=== PATIENT | male | born 1995 | race Caucasian/White ===

== ENCOUNTER → 2018-11-13 | Outpatient (CLI) | payer OTHER ==
[~2018-11-13] MED LIST: COLA100C5 PO; PERCOCET PO
[2018-11-13 20:46] LABS: BLOOD UREA NITROGEN 17 MG/DL (7-18); CALCIUM LEVEL 8.8 MG/DL (8.5-10.1); CARBON DIOXIDE LEVEL 30 MEQ/L (21-32); CHLORIDE LEVEL 106 MEQ/L (98-107); CREATININE FOR GFR 0.99 MG/DL (0.70-1.30); GLOMERULAR FILTRATION RATE > 60.0 (>60); GLUCOSE, FASTING 89 MG/DL (70-100); POTASSIUM SERUM 4.4 MEQ/L (3.5-5.1); SODIUM LEVEL 140 MEQ/L (136-145)
[2018-11-13 20:48] LABS: HEMATOCRIT 41.8 % (42.0-52.0); HEMOGLOBIN 14.1 g/dl (13.5-17.5); MEAN CORPUSCULAR HEMOGLOBIN 31.3 pg (27.0-33.0); MEAN CORPUSCULAR HGB CONC 33.7 g/dl (32.0-36.5); MEAN CORPUSCULAR VOLUME 92.7 fl (80.0-96.0); PLATELET COUNT, AUTOMATED 247 10^3/uL (150-450); RED BLOOD COUNT 4.51 10^6/uL (4.30-6.10); WHITE BLOOD COUNT 6.4 10^3/uL (4.0-10.0)
== END ==
LOC: M LRY 14:55
PROVIDERS: ATTEND Plastic Surgery Surgery of the Hand
DX: M54.07 Panniculitis affecting regions of neck and back, lumbosacral region (principal)

== ENCOUNTER 2018-11-18 05:48 | Day surgery (SDC) | payer OTHER ==
[~2018-11-18] VITALS: Ht 170.2 cm; Wt 97.0 kg
[2018-11-18] VITALS (8 sets, daily range): BP systolic 119–142; BP diastolic 34–77
[2018-11-18] MEDS ORDERED: LIDOCAINE 1% MDV 20ML VIAL SQ PRN (06:00)
[2018-11-18] MEDS ORDERED: dexameTHASONE 4 MG/ML 1ML VIAL (J1100) As Ordered ONE (06:59)
[2018-11-18] MEDS ORDERED: PROPOFOL 200 MG/20 ML VIAL As Ordered ONE (06:59)
[2018-11-18] MEDS ORDERED: ONDANSETRON 4MG/2ML VIAL (J2405) As Ordered ONE (06:59)
[2018-11-18] MEDS ORDERED: ROCURONIUM BROMIDE 50 MG/5 ML VIAL As Ordered ONE (06:59)
[2018-11-18] MEDS ORDERED: LIDOCAINE 2% INJ 100 MG/5 ML SDV (FOR ANES.) As Ordered ONE (06:59)
[2018-11-18] MEDS ORDERED: LR 1,000 ML IV ONE (07:00)
[2018-11-18] MEDS ORDERED: HEPARIN SOD (PORCINE) 5000 UNITS/ML VIAL SQ ONE (07:00)
[2018-11-18] MEDS ORDERED: ceFAZolin SOD 1 GM in D5W MINI-BAG PLUS 50 ML IV ONE (07:00)
[2018-11-18] MEDS ORDERED: MIDAZOLAM INJ 2 MG/2 ML VIAL (J2250) As Ordered ONE (07:05)
[2018-11-18] MEDS ORDERED: fentaNYL 250 MCG/5 ML INJECTION (J3010) As Ordered ONE (07:05)
[2018-11-18] MEDS ORDERED: BACITRACIN PWD 50,000 UNITS VIAL As Ordered ONE (07:13)
[2018-11-18] MEDS ORDERED: BUPIVACAINE LIPOSOME/PF 1.3% 20ML VIAL (13.3MG/ML)(EXPAREL)(C9290 PER1MG) As Ordered ONE (07:13)
[2018-11-18] MEDS ORDERED: ACETAMINOPHEN 1000MG 100ML IV BTL (OFIRMEV) (J0131 PER 10MG) As Ordered ONE (07:49)
[2018-11-18] MEDS ORDERED: VECURONIUM BROMIDE 10 MG VIAL As Ordered ONE (07:50)
[2018-11-18] MEDS ORDERED: GLYCOPYRROLATE INJ 0.2 MG/ML 2 ML VIAL As Ordered ONE (08:13)
[2018-11-18] MEDS ORDERED: SUGAMMADEX SODIUM 500 MG/5 ML VIAL (BRIDION) As Ordered ONE (08:47)
[2018-11-18] MEDS ORDERED: ePHEDrine SULFATE 25 MG/5 ML(5MG/ML) SYRINGE As Ordered ONE (09:10)
[2018-11-18] MEDS ORDERED: fentaNYL 100 MCG/2 ML INJECTION (J3010) As Ordered ONE ×2 (09:33→10:35)
[2018-11-18] MEDS ORDERED: LIDOCAINE W/EPINEPHRINE 1% 20ML VIAL As Ordered ONE (09:56)
--- NOTE | 2018-11-18 11:29 | POST-OPPD ---
Postoperative Procedure Note Date Of Procedure: Nov 18, 2018 PREOPERATIVE DIAGNOSIS: Panniculitis POSTOPERATIVE DIAGNOSIS: same FINDINGS: extensive pannus. PROCEDURE: Extended panniculectomy. SURGEON: Dr Scanlon ANESTHESIA: General SPECIMENS: Pannus 1977g ESTIMATED BLOOD LOSS: 50cc REPLACED: none DRAINS: 10 mm MARCO drains x 4 COMPLICATIONS: none POSTOPERATIVE CONDITION: stable Dictation: [id number] MELLY SCANLON DO Nov 18, 2018 11:29
[2018-11-18] MEDS ORDERED: fentaNYL 100 MCG/2 ML INJECTION (J3010) IV PRN (12:00)
[2018-11-18] MEDS ORDERED: ONDANSETRON 4MG/2ML VIAL (J2405) IV PRN ×2 (12:00→13:01)
[2018-11-18] MEDS ORDERED: HYDROMORPHONE HCL 0.5 MG/ 0.5 ML SYRINGE (J1170 PER 1) IV PRN (12:00)
[2018-11-18] MEDS ORDERED: LR 1,000 ML IV SCH (12:00)
[2018-11-18] MEDS ORDERED: oxyCODONE 5MG TAB PO PRN (12:00)
[2018-11-18] MEDS: LR 1,000 ML IV SCH ×2 (13:00→21:59)
[2018-11-18] MEDS: ceFAZolin SOD 1 GM in D5W MINI-BAG PLUS 50 ML IV SCH (15:23)
[2018-11-18] MEDS: PERCOCET 5MG/325MG TAB PO PRN (15:23)
--- NOTE | 2018-11-18 23:09 | RO ---
DATE OF PROCEDURE: 11/18/2018 PREPROCEDURE DIAGNOSIS: Panniculitis. POSTPROCEDURE DIAGNOSIS: Panniculitis. PROCEDURE: Extended panniculectomy. SURGEON: Deedee Rosas DO ANESTHESIA: General. SPECIMEN SENT: Pannus 1976 grams. BLOOD LOSS: 50 mL. No complications. Four drains left in place, 10 mm Ceferino-Lee. DESCRIPTION OF PROCEDURE: This is a 23-year-old male who lost a large amount of weight, over 100 pounds. He has significant pannus anteriorly above umbilicus and below. Patient had no previous operations. He lost the weight with diet and exercise. He wishes to have excess skin removed. Risks, benefits and alternatives discussed with the patient, and he is ready to proceed. On the day of surgery, he was marked in preoperative holding area and then brought into the operating room, placed in supine position. Preoperative antibiotics were given. 5000 units of Heparin were given SQ. Sequential stockings placed on the lower calves and general anesthesia was induced. He was prepped and draped in the usual sterile fashion. The measurements are as follows: 7 cm, the lower incision is going to be from the pubic bone. Wide incision was made in the lower abdomen, and a flap was raised using electrocautery. Perforators were identified and suture ligated as we went along until umbilicus stalk was encountered. Then, the rhomboid incision was made in a flap around the umbilicus, and then we continued raising the flap until the Xiphoid process superiorly and the costal margins laterally. Umbilical stalk was left in place with good perfusion. We reexamined the Rectus muscle. There is a diastasis superiorly more than inferiorly, 5 cm, so the patient was placed in Trendelenburg position, and the rectus sheath was plicated, alleviating the diastasis. We used interrupted #0 Vicryl sutures and a running #1 looped PDS. After the plication was completed, we checked again the flaps for hemostasis, which was completed, and we used electrocautery and also suture ligation. Patient placed in the reflex position and pannus was measured and resected, totaling 1977 grams. The flap was always in good perfusion, and it was realigned and was tailored and tacked with sweetheart clamps to reassure the symmetry. Exparel was injected in the anterior rectus sheath, total 10 cc. Then, we started our closure with three layers of interrupted #0 Vicryl, then #3-0 Monocryl and a V-Loc suture, #3-0 Monocryl as well. Two 10 mm Ceferino- Lee drains placed on each side through the horizontal incision. Another 5 cc Exparel infiltrated in the incision. After that portion of the procedure completed, the new opening for the umbilical stalk was made. Then, the umbilical stalk was brought into view and sutured in place with layered closure with interrupted #3-0 Monocryl and a #5-0 plain suture. There was slight asymmetry on the left side, but he has more fatty tissue on the left side, so that area was infiltrated with tumescent solution and suction-assisted lipectomy was done for symmetry on the left side and slightly on the right to create symmetry on the lower lateral portions of the incision. 150 mL of tumescent solution and 150 mL of suction-assisted lipectomy was taken out. The Prineo dressing was applied to lower abdomen and Xeroform to the umbilicus. Patient placed in a padded binder, and was extubated in the operating room without any difficulties, transferred to the recovery room in stable condition. MIKE
[2018-11-19] MEDS: ceFAZolin SOD 1 GM in D5W MINI-BAG PLUS 50 ML IV SCH (00:14)
[2018-11-19 02:00] VITALS: BP 119/71
[2018-11-19 06:00] VITALS: BP 115/70
[2018-11-19] MEDS: PERCOCET 5MG/325MG TAB PO PRN (08:24)
--- NOTE | 2018-11-19 09:06 | IPNPDOC ---
Subjective General Date/Time Seen The patient was seen on 11/19/18 at 07:52. Subject Chief Complaint/History The patient is a 23-year-old male admitted with a reason for visit of Panniculitis. S/p Extended panniculectomy POD 1. Recovering well. Muñoz removed. Tolerating full liquid diet. Pain controlled with medications. Denies nausea, vomiting. Some numbness left hand, no problems moving. Current Medications Current Medications Current Medications Medications (Trade) Dose Ordered Sig/Ronnie Route PRN Reason Start Time Stop Time Status Last Admin Dose Admin Cefazolin Sodium 1 gm/Dextrose 50 ml @ 100 mls/hr Q8H IV 11/18/18 16:00 11/19/18 00:29 DC 11/19/18 00:14 Fentanyl Citrate (Sublimaze) 25 mcg Q5MP PRN IV MODERATE PAIN (PS 4-7) 11/18/18 12:00 11/18/18 13:00 DC Hydromorphone HCl (Dilaudid) 0.4 mg Q5MP PRN IV MODERATE/SEVERE PAIN (PS 5-10) 11/18/18 12:00 11/18/18 13:00 DC Lactated Ringer's 1,000 ml @ 75 mls/hr [id number] IV 11/18/18 13:00 11/18/18 21:59 Lactated Ringer's 1,000 ml @ 100 mls/hr Q10H IV 11/18/18 12:00 11/18/18 13:00 DC Lidocaine HCl (LIDOCAINE 1% MDV 20ml) 0.1 ml ONCE PRN SQ DISCOMFORT BEFORE IV START 11/18/18 06:00 11/18/18 11:50 DC Morphine Sulfate (Morphine Sulfate Inj) 4 mg Q4HP PRN IV SEVERE PAIN (PS 8-10) 11/18/18 13:01 Ondansetron HCl (ZOFRAN INJection) 4 mg Q4HP PRN IV NAUSEA OR VOMITING 11/18/18 12:00 11/18/18 13:00 DC Ondansetron HCl (ZOFRAN INJection) 4 mg Q6HP PRN IV NAUSEA 11/18/18 13:01 11/18/18 17:52 Oxycodone HCl (Roxicodone, Oxyir) 5 mg ASDIRECTED PRN PO MILD/MODERATE PAIN (PS 1-7) 11/18/18 12:00 11/18/18 13:00 DC Oxycodone/ Acetaminophen (Percocet 5mg/ 325mg Tablet) 1 tab Q4HP PRN PO MODERATE PAIN (PS 5-7) 11/18/18 13:01 11/19/18 08:24 Allergies Coded Allergies: No Known Allergies (Unverified , 11/18/18) Objective Physical Examination Examination GENERAL APPEARANCE:Patient seen, laying in bed, awake, alert, and oriented. Comfortable, in no acute distress. SKIN: Warm and moist. LUNGS: Clear to auscultation bilaterally. No wheezing appreciated. HEART: No chest wall abnormalities. Regular rate and rhythm with no murmurs appreciated. ABDOMEN: Abdomen is soft, post op reproducible tenderness. Incisions intact. Umbilicus viable. MARCO drains with serosanguinous drainage. Minimal post op swelling. EXTREMITIES: Extremities have no deformities. No edema identified.Left hand full ROM, generalized numbness of the fingers. Vital Signs Vital Signs Date Time Temp Pulse Resp B/P (MAP) Pulse Ox O2 Delivery O2 Flow Rate FiO2 11/19/18 08:24 17 11/19/18 06:00 98.8 83 115/70 (85) 97 11/18/18 11:50 2 I&Os I&O- Last 24 Hours up to 6 AM 11/19/18 06:00 Intake Total 5460 ml Output Total 3168 ml Balance 2292 ml Impression S/p extended panniculectomy POD 1. Recovering well. D/c IVF, Muñoz today. Advance diet to Regular. Start with ambulating. Keep HOB at 45 degrees Pain control Dressings changed, continue with MARCO monitoring Findings explained to the patient. Teaching on how get up and move safely done with patient. Incentive spirometry. Numbness left hand- continue with observation, encourage moving the hand. Will follow. Plan / VTE VTE Prophylaxis Ordered?: Yes MELLY SCANLON DO Nov 19, 2018 09:06
[2018-11-19 10:00] VITALS: BP 138/30
[2018-11-19] MEDS: MORPHINE 4 MG/ML 1ML VIAL/SYRINGE (J2270) IV PRN ×2 (10:11→15:20)
[2018-11-19 14:00] VITALS: BP 144/82
[2018-11-19 18:00] VITALS: BP 150/80
[2018-11-19 20:00] VITALS: BP 142/88
[2018-11-19] MEDS ORDERED: PERCOCET 5MG/325MG TAB PO PRN (20:30)
[2018-11-20 02:00] VITALS: BP 124/72
[2018-11-20 06:00] VITALS: BP 123/89
[2018-11-20] MEDS ORDERED: DOCUSATE SODIUM 100 MG CAP PO SCH (09:00)
--- NOTE | 2018-11-20 09:37 | IPNPDOC ---
Subjective General Date/Time Seen The patient was seen on 11/20/18 at 09:33. Subject Chief Complaint/History The patient is a 23-year-old male admitted with a reason for visit of Panniculitis. S/p Extended panniculectomy POD 2. Doing well Pain controlled. No complains Hand numbness improved Current Medications Current Medications Current Medications Medications (Trade) Dose Ordered Sig/Ronnie Route PRN Reason Start Time Stop Time Status Last Admin Dose Admin Cefazolin Sodium 1 gm/Dextrose 50 ml @ 100 mls/hr Q8H IV 11/18/18 16:00 11/19/18 00:29 DC 11/19/18 00:14 Fentanyl Citrate (Sublimaze) 25 mcg Q5MP PRN IV MODERATE PAIN (PS 4-7) 11/18/18 12:00 11/18/18 13:00 DC Hydromorphone HCl (Dilaudid) 0.4 mg Q5MP PRN IV MODERATE/SEVERE PAIN (PS 5-10) 11/18/18 12:00 11/18/18 13:00 DC Lactated Ringer's 1,000 ml @ 75 mls/hr [id number] IV 11/18/18 13:00 11/19/18 11:41 DC 11/18/18 21:59 Lactated Ringer's 1,000 ml @ 100 mls/hr Q10H IV 11/18/18 12:00 11/18/18 13:00 DC Lidocaine HCl (LIDOCAINE 1% MDV 20ml) 0.1 ml ONCE PRN SQ DISCOMFORT BEFORE IV START 11/18/18 06:00 11/18/18 11:50 DC Morphine Sulfate (Morphine Sulfate Inj) 4 mg Q4HP PRN IV SEVERE PAIN (PS 8-10) 11/18/18 13:01 11/19/18 15:20 Ondansetron HCl (ZOFRAN INJection) 4 mg Q4HP PRN IV NAUSEA OR VOMITING 11/18/18 12:00 11/18/18 13:00 DC Ondansetron HCl (ZOFRAN INJection) 4 mg Q6HP PRN IV NAUSEA 11/18/18 13:01 11/18/18 17:52 Oxycodone HCl (Roxicodone, Oxyir) 5 mg ASDIRECTED PRN PO MILD/MODERATE PAIN (PS 1-7) 11/18/18 12:00 10/8/19 13:00 DC Oxycodone/ Acetaminophen (Percocet 5mg/ 325mg Tablet) 1 tab Q4HP PRN PO MODERATE PAIN (PS 5-7) 11/18/18 13:01 11/19/18 20:27 DC 11/19/18 08:24 Oxycodone/ Acetaminophen (Percocet 5mg/ 325mg Tablet) 2 tab Q4HP PRN PO PAIN 11/19/18 20:30 11/19/18 21:10 Allergies Coded Allergies: No Known Allergies (Unverified , 11/18/18) Objective Physical Examination Examination GENERAL APPEARANCE:Patient seen, laying in bed, awake, alert, and oriented. Comfortable, in no acute distress. SKIN: Warm and moist. LUNGS: Clear to auscultation bilaterally. No wheezing appreciated. HEART: No chest wall abnormalities. Regular rate and rhythm with no murmurs appreciated. ABDOMEN: Abdomen is soft NT/ND. Incisions intact. Umbilicus viable. MARCO drains with sanguineous drainage. Minimal ecchymois. Vital Signs Vital Signs Date Time Temp Pulse Resp B/P (MAP) Pulse Ox O2 Delivery O2 Flow Rate FiO2 11/20/18 06:00 97.2 81 18 123/89 (100) 96 11/18/18 11:50 2 I&Os I&O- Last 24 Hours up to 6 AM 11/20/18 06:00 Intake Total 1764 ml Output Total 40 ml Balance 1724 ml Impression S/p panniculectomy POD 2 Stable for discharge Colace Rx Percocet Monitor MARCO drains. Abdominal binder. Post instructions given to patient. F/up plastic surgery Plan / VTE VTE Prophylaxis Ordered?: Yes MELLY SCANLON DO Nov 20, 2018 09:37
[2018-11-20] MEDS ORDERED: PERCOCET PO (09:44)
[2018-11-20] MEDS ORDERED: COLA100C5 PO (09:44)
== END 2018-11-20 11:10 | disposition home or self-care (01) ==
LOC: M SDC 05:48 → M MSPAV 12:18 → M SDC 11-20 11:10
PROVIDERS: ATTEND Plastic Surgery Surgery of the Hand
DX: M54.07 Panniculitis affecting regions of neck and back, lumbosacral region (principal)
CPT/HCPCS: 15830; 88302; 96361; 96365; 96366; 96375; 96376; C9290; J0131; J0690; J1100; J2250; J2270; J2405; J3010

== ENCOUNTER 2019-05-02 19:45 | Emergency (ER) | payer OTHER ==
[~2019-05-02] VITALS: Ht 170.2 cm; Wt 100.2 kg
[2019-05-02 20:19] LABS: HEMATOCRIT 45.7 % (42.0-52.0); HEMOGLOBIN 15.4 g/dl (13.5-17.5); MEAN CORPUSCULAR HEMOGLOBIN 31.2 pg (27.0-33.0); MEAN CORPUSCULAR HGB CONC 33.7 g/dl (32.0-36.5); MEAN CORPUSCULAR VOLUME 92.7 fl (80.0-96.0); PLATELET COUNT, AUTOMATED 258 10^3/uL (150-450); RED BLOOD COUNT 4.93 10^6/uL (4.30-6.10); WHITE BLOOD COUNT 8.6 10^3/uL (4.0-10.0)
[2019-05-02 20:42] LABS: AMPHETAMINES LEVEL URINE NEGATIVE (NEGATIVE); BARBITURATES URINE NEGATIVE (NEGATIVE); BENZODIAZEPINES URINE NEGATIVE (NEGATIVE); CANNABINOIDS URINE NEGATIVE (NEGATIVE); COCAINE METABOLITE URINE NEGATIVE (NEGATIVE); METHADONE URINE NEGATIVE (NEGATIVE); OPIATES URINE NEGATIVE (NEGATIVE); PHENCYCLIDINE URINE NEGATIVE (NEGATIVE)
[2019-05-02 20:52] LABS: ALBUMIN 3.8 GM/DL (3.2-5.2); ALT/SGPT 35 U/L (12-78); BILIRUBIN,DIRECT 0.2 MG/DL (0.0-0.2); BILIRUBIN,TOTAL 0.5 MG/DL (0.2-1.0); BLOOD UREA NITROGEN 15 MG/DL (7-18); CALCIUM LEVEL 8.7 MG/DL (8.5-10.1); CARBON DIOXIDE LEVEL 30 MEQ/L (21-32); CHLORIDE LEVEL 109 MEQ/L (98-107); CREATININE FOR GFR 1.08 MG/DL (0.70-1.30); ETHYL ALCOHOL (ETHANOL) < 0.003 % (0.000-0.010); GLOMERULAR FILTRATION RATE > 60.0 (>60); GLUCOSE, FASTING 70 MG/DL (70-100); POTASSIUM SERUM 3.9 MEQ/L (3.5-5.1); SALICYLATE LEVEL < 1.7 MG/DL (5.0-30.0); SODIUM LEVEL 143 MEQ/L (136-145); TOTAL PROTEIN 7.5 GM/DL (6.4-8.2)
[2019-05-02 20:53] LABS: ACETAMINOPHEN LEVEL < 2.0 UG/ML (10.0-30.0)
--- NOTE | 2019-05-02 21:46 | ED PDOC ---
Post-Departure Follow-Up I thought the pt.would benefit from admission. Pt refused this. Dr Mike did n ot feel involuntary admission was needed. If the pt. refuses admission, this is his choice. the [facility] at [facility] on Saturday. RICK CULP DO May 02, 2019 21:46
[2019-05-02 21:50] VITALS: BP 139/80
== END 2019-05-02 22:15 | disposition home or self-care (01) ==
LOC: M ED 19:45
DX: F33.9 Major depressive disorder, recurrent, unspecified (principal); R45.851 Suicidal ideations
CPT/HCPCS: 36415; 80048; 80076; 80307; 84443; 85027; 99284; G0480

== ENCOUNTER 2019-06-27 13:40 | Emergency (ER) | payer OTHER ==
[~2019-06-27] VITALS: Ht 170.2 cm; Wt 97.2 kg
[2019-06-27] MEDS ORDERED: ARIP1TAB4 PO (13:50)
[2019-06-27 14:24] LABS: HEMATOCRIT 41.4 % (42.0-52.0); MEAN CORPUSCULAR HEMOGLOBIN 31.5 pg (27.0-33.0); MEAN CORPUSCULAR HGB CONC 33.8 g/dl (32.0-36.5); MEAN CORPUSCULAR VOLUME 93.2 fl (80.0-96.0); PLATELET COUNT, AUTOMATED 233 10^3/uL (150-450); RED BLOOD COUNT 4.44 10^6/uL (4.30-6.10); WHITE BLOOD COUNT 7.8 10^3/uL (4.0-10.0)
[2019-06-27 15:03] LABS: AMPHETAMINES LEVEL URINE NEGATIVE (NEGATIVE); BARBITURATES URINE NEGATIVE (NEGATIVE); BENZODIAZEPINES URINE NEGATIVE (NEGATIVE); CANNABINOIDS URINE NEGATIVE (NEGATIVE); COCAINE METABOLITE URINE NEGATIVE (NEGATIVE); METHADONE URINE NEGATIVE (NEGATIVE); OPIATES URINE NEGATIVE (NEGATIVE); PHENCYCLIDINE URINE NEGATIVE (NEGATIVE)
[2019-06-27 15:24] LABS: ACETAMINOPHEN LEVEL < 2.0 UG/ML (10.0-30.0); ALT/SGPT 80 U/L (12-78); BILIRUBIN,DIRECT 0.2 MG/DL (0.0-0.2); BILIRUBIN,TOTAL 0.6 MG/DL (0.2-1.0); BLOOD UREA NITROGEN 20 MG/DL (7-18); CALCIUM LEVEL 8.6 MG/DL (8.5-10.1); CARBON DIOXIDE LEVEL 28 MEQ/L (21-32); CHLORIDE LEVEL 109 MEQ/L (98-107); CREATININE FOR GFR 1.02 MG/DL (0.70-1.30); ETHYL ALCOHOL (ETHANOL) < 0.003 % (0.000-0.010); GLOMERULAR FILTRATION RATE > 60.0 (>60); GLUCOSE, FASTING 89 MG/DL (70-100); POTASSIUM SERUM 3.7 MEQ/L (3.5-5.1); SALICYLATE LEVEL < 1.7 MG/DL (5.0-30.0); SODIUM LEVEL 142 MEQ/L (136-145); TOTAL PROTEIN 7.3 GM/DL (6.4-8.2)
[2019-06-27 16:22] VITALS: BP 141/77
--- NOTE | 2019-06-28 21:02 | ECGEPIP ---
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
== END 2019-06-27 16:27 | disposition home or self-care (01) ==
LOC: M ED 13:40
DX: F33.9 Major depressive disorder, recurrent, unspecified (principal); Z79.899 Other long term (current) drug therapy
CPT/HCPCS: 36415; 80048; 80076; 80307; 84443; 85027; 93005; 99284; G0480

== ENCOUNTER 2019-10-05 01:55 | Emergency (ER) | payer OTHER ==
[~2019-10-05] VITALS: Ht 170.2 cm; Wt 122.5 kg
[~2019-10-05 01:55] MED LIST changes: +ARIP1TAB4 PO
[2019-10-05 03:30] LABS: HEMATOCRIT 40.2 % (42.0-52.0); HEMOGLOBIN 13.8 g/dl (13.5-17.5); MEAN CORPUSCULAR HEMOGLOBIN 31.7 pg (27.0-33.0); MEAN CORPUSCULAR HGB CONC 34.3 g/dl (32.0-36.5); MEAN CORPUSCULAR VOLUME 92.4 fl (80.0-96.0); PLATELET COUNT, AUTOMATED 208 10^3/uL (150-450); RED BLOOD COUNT 4.35 10^6/uL (4.30-6.10); WHITE BLOOD COUNT 6.1 10^3/uL (4.0-10.0)
[2019-10-05 04:21] LABS: ACETAMINOPHEN LEVEL < 2.0 UG/ML (10.0-30.0); ALBUMIN 3.4 GM/DL (3.2-5.2); ALT/SGPT 33 U/L (12-78); AMPHETAMINES LEVEL URINE NEGATIVE (NEGATIVE); BARBITURATES URINE NEGATIVE (NEGATIVE); BENZODIAZEPINES URINE NEGATIVE (NEGATIVE); BILIRUBIN,DIRECT 0.1 MG/DL (0.0-0.2); BILIRUBIN,TOTAL 0.4 MG/DL (0.2-1.0); BLOOD UREA NITROGEN 17 MG/DL (7-18); CALCIUM LEVEL 8.3 MG/DL (8.5-10.1); CANNABINOIDS URINE NEGATIVE (NEGATIVE); CARBON DIOXIDE LEVEL 27 MEQ/L (21-32); CHLORIDE LEVEL 109 MEQ/L (98-107); COCAINE METABOLITE URINE NEGATIVE (NEGATIVE); CREATININE FOR GFR 0.98 MG/DL (0.70-1.30); ETHYL ALCOHOL (ETHANOL) < 0.003 % (0.000-0.010); GLOMERULAR FILTRATION RATE > 60.0 (>60); GLUCOSE, FASTING 92 MG/DL (70-100); METHADONE URINE NEGATIVE (NEGATIVE); OPIATES URINE NEGATIVE (NEGATIVE); PHENCYCLIDINE URINE NEGATIVE (NEGATIVE); POTASSIUM SERUM 4.1 MEQ/L (3.5-5.1); SALICYLATE LEVEL < 1.7 MG/DL (5.0-30.0); SODIUM LEVEL 144 MEQ/L (136-145); TOTAL PROTEIN 6.8 GM/DL (6.4-8.2)
[2019-10-06 04:41] VITALS: BP 133/61
--- NOTE | 2019-10-26 17:49 | ECGEPIP ---
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
== END 2019-10-06 04:46 ==
LOC: M ED 01:55
DX: R45.851 Suicidal ideations (principal); Z60.9 Problem related to social environment, unspecified; F33.9 Major depressive disorder, recurrent, unspecified; F41.9 Anxiety disorder, unspecified; Z79.899 Other long term (current) drug therapy
CPT/HCPCS: 36415; 80048; 80076; 80307; 84443; 85027; 93005; 99284; G0480; U0002

== ENCOUNTER 2019-12-13 21:43 | Inpatient (IN) | payer OTHER ==
[~2019-12-13] VITALS: Ht 170.2 cm; Wt 108.0 kg
[2019-12-13] MEDS ORDERED: ESCI10TA2 PO (22:05)
[2019-12-13 22:41] LABS: HEMATOCRIT 44.3 % (42.0-52.0); HEMOGLOBIN 14.8 g/dl (13.5-17.5); MEAN CORPUSCULAR HEMOGLOBIN 30.3 pg (27.0-33.0); MEAN CORPUSCULAR HGB CONC 33.4 g/dl (32.0-36.5); MEAN CORPUSCULAR VOLUME 90.8 fl (80.0-96.0); PLATELET COUNT, AUTOMATED 235 10^3/uL (150-450); RED BLOOD COUNT 4.88 10^6/uL (4.30-6.10); WHITE BLOOD COUNT 6.8 10^3/uL (4.0-10.0)
[2019-12-13 23:08] LABS: AMPHETAMINES LEVEL URINE NEGATIVE (NEGATIVE); BARBITURATES URINE NEGATIVE (NEGATIVE); BENZODIAZEPINES URINE NEGATIVE (NEGATIVE); CANNABINOIDS URINE NEGATIVE (NEGATIVE); COCAINE METABOLITE URINE NEGATIVE (NEGATIVE); METHADONE URINE NEGATIVE (NEGATIVE); OPIATES URINE NEGATIVE (NEGATIVE); PHENCYCLIDINE URINE NEGATIVE (NEGATIVE)
[2019-12-13 23:19] LABS: ACETAMINOPHEN LEVEL < 2.0 UG/ML (10.0-30.0); ALBUMIN 3.9 GM/DL (3.2-5.2); ALT/SGPT 43 U/L (12-78); BILIRUBIN,DIRECT 0.2 MG/DL (0.0-0.2); BILIRUBIN,TOTAL 0.6 MG/DL (0.2-1.0); BLOOD UREA NITROGEN 12 MG/DL (7-18); CALCIUM LEVEL 8.7 MG/DL (8.5-10.1); CARBON DIOXIDE LEVEL 28 MEQ/L (21-32); CHLORIDE LEVEL 108 MEQ/L (98-107); CREATININE FOR GFR 1.03 MG/DL (0.70-1.30); ETHYL ALCOHOL (ETHANOL) < 0.003 % (0.000-0.010); GLOMERULAR FILTRATION RATE > 60.0 (>60); GLUCOSE, FASTING 89 MG/DL (70-100); POTASSIUM SERUM 3.8 MEQ/L (3.5-5.1); SALICYLATE LEVEL < 1.7 MG/DL (5.0-30.0); SODIUM LEVEL 140 MEQ/L (136-145); TOTAL PROTEIN 7.5 GM/DL (6.4-8.2)
[2019-12-13] MEDS ORDERED: ARIP1TAB6 PO (23:33)
[2019-12-14] MEDS ORDERED: ESCITALOPRAM OXALATE 10 MG TAB (LEXAPRO) PO ONE
[2019-12-14] MEDS ORDERED: MAALOX 30 ML SUSP *UDC PO PRN (15:30)
[2019-12-14] MEDS ORDERED: OLANZapine ORAL DISINTEGRATING TAB 5MG PO PRN (15:30)
[2019-12-14] MEDS ORDERED: IBUPROFEN 400 MG TAB PO PRN (15:30)
[2019-12-14] MEDS ORDERED: MOM 30ML SUSPENSION UDC PO PRN (15:30)
[2019-12-14 18:06] VITALS: BP 143/82
--- NOTE | 2019-12-14 19:37 | ECGEPIP ---
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
[2019-12-15 06:53] VITALS: BP 131/78
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
--- NOTE | 2019-12-15 16:15 | HPEPDOC ---
General Date of Admission Dec 14, 2019 at 15:18 Date of Service: Dec 15, 2019 Chief Complaint The patient is a 24-year-old male admitted with a reason for visit of Unspecified Depressive Disorder. 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 He complains of lack of energy, lack of interest in things. Depressed mood and suicidal thoughts. He is being medically examined today. He denies any medical complaints today. Home Medications Scheduled Aripiprazole (Aripiprazole) 5 Mg Tablet, 5 MG PO DAILY, (Reported) Escitalopram Oxalate (Escitalopram Oxalate) 10 Mg Tablet, 20 MG PO QHS, (Re ported) Allergies Coded Allergies: No Known Allergies (Unverified , 11/18/18) Past Medical History Medical History Obesity Major depressive disorder with 2 suicide attempts in past hanging and OD H/O alcohol abuse now in substance abuse rehab program at [place] Anxiety Surgical History Rand barragankaitlin in 2018 Family History Mother : Obesity Social History * Smoker: Denies Alcohol: sober (heavy drinker till 2019) Drugs: denies A-FIB/CHADSVASC A-FIB History Current/History of A-Fib/PAF?: No Review of Systems Constitutional: Denies: Chills, Fever, Night Sweats Eyes: Denies: Pain, Vision change ENT: Denies: Head Aches, Ear Pain, Dysphagia Physical Examination General Exam: Positive: Alert, Cooperative, No Acute Distress Eye Exam: Positive: PERRLA, Conjunctiva & lids normal, EOMI; Negative: Sclera icteric ENT Exam: Positive: Atraumatic, Mucous membr. moist/pink, Pharynx Normal Neck Exam: Positive: Supple; Negative: JVD, thyromegaly Chest Exam: Positive: Clear to auscultation, Normal air movement Heart Exam: Positive: Rate Normal, Regular Rhythm, Normal S1, Normal S2; Negative: Murmurs, Rubs Abdomen Exam: Positive: Normal bowel sounds, Soft, Other (scar present.); Negative: Tenderness, Hepatospenomegaly Extremity Exam: Positive: Normal pulses; Negative: Clubbing, Cyanosis, Edema Skin Exam: Positive: Nl turgor and temperature; Negative: Breakdown, Lesion Vital Signs Vital Signs Date Time Temp Pulse Resp B/P (MAP) Pulse Ox O2 Delivery O2 Flow Rate FiO2 11/3/20 06:53 97.3 74 12 131/78 (95) Room Air 12/14/19 18:06 97 Assessment/Plan 24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 He complains of lack of energy, lack of interest in things. Depresed mood and suicidal thoughts. He is being medically examined today. Major depressive disoder with suidal attempt as per psychiatry Obesity follow up with PMD. No active medical issues at this time will sign off. Plan / VTE VTE Prophylaxis Ordered?: No (freely ambulatory) MELANIE MÁRQUEZ MD Dec 15, 2019 16:12
[2019-12-15 17:56] VITALS: BP 151/87
[2019-12-15] MEDS: traZODone 50 MG TAB PO PRN (20:47)
[2019-12-15] MEDS: ESCITALOPRAM OXALATE 10 MG TAB (LEXAPRO) PO SCH (20:48)
[2019-12-16 06:58] VITALS: BP 138/65
--- NOTE | 2019-12-16 11:09 | MHIPNPDOC ---
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 Patient states on Hallow night he was in a "dark Place" and didn't think that anyone care about him. He decided to hang himself, reporting that he had not supports. States he took an extension cord and wrapped around his neck and went into a closet, but stopped because it was hurting. Had an overdose in April 2019 and has had at least 3-4 psychiatric admissions. He is being med boarded out of [employer] and is not looking forward to going home. VITAL SIGNS: See below. NEW TEST RESULTS: CURRENT MEDICATIONS: See below. 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 Reports that he is feeling better today, states that he feels that Lexapro is helping. He is dressed appropriately, calm, cooperative and pleasant in the interview. Eye contact is good. Smiles on approach and is not observed with psychomotor agitation or retardation. Speech: Is fluid and conversant, normal rate, tone and volume. Language skills are good. Thought processes including: reality-based, linear and goal oriented. Thought content: Reports mild depression with no suicidal ideation, planning or intent Description of abnormal or psychotic thoughts: not observed, patient denies Judgment: good Insight: good Orientation: Alert and oriented to person, place, time and situation Recent and remote memory: intact Attention span and concentration: good Language: expansive Fund of knowledge: average Mood: mildly depressed, but "stable" Affect: congruent with mood DIAGNOSES: Major Depressive Disorder, Recurrent, Severe ASSESSMENT: Patient reports his mood is "Stable" States that he feels that the Lexapro is helping. "I don't feel depressed or sad, was a little depressed and sad yesterday." Patient exhibits poor self-esteem, he is an intense negative thinker and has trouble seeing himself in a positive light. He was asked to do some negative thinking exercises which he reviewed with me today. Reviewed his Negative Vs Positive Thoughts: 1. I am not and will never be loved 2. I feel rejected by opposite sex. 3. I won't make it in life, feel like I have to struggle to be average 4. I feel lonely. 5. I feel like I don't have any friends, feels socially awkward. Positive Thoughts 1. Feels that his sister does care about him, but unsure about the rest of his family. 2. Realizes that he won't always be rejected and won't always be rejected. 3. I will have to work harder than other people. 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 I have people I can talk to. 5. I have friends, I can reach out to. Reviewed the patient that his negative thinking has been on-going since he was a young child, he agrees that his negative thinking is chronic and that it he struggles with positive thoughts/thinking. Patient given a journal which I have encouraged him to continue to write in. Patient declines the Anxa's recommendation of intense inpatient, would rather return home. MANAGEMENT PLAN: Discharge Tomorrow TIME SPENT: 25 minutes. Vital Signs Vital Signs Date Time Temp Pulse Resp B/P (MAP) Pulse Ox O2 Delivery O2 Flow Rate FiO2 12/16/19 06:58 99.4 57 16 138/65 (89) 100 Room Air Current Medications Current Medications Medications (Trade) Dose Ordered Sig/Ronnie Route PRN Reason Start Time Stop Time Status Last Admin Dose Admin Al Hydrox/Mg Hydrox/Simethicone (Mylanta) 30 ml Q4HP PRN PO HEARTBURN/INDIGESTION 12/14/19 15:30 Aripiprazole (AbiLIFY) 5 mg QHS PO 12/15/19 21:00 12/15/19 20:47 Escitalopram Oxalate (Lexapro) 20 mg QHS PO 12/15/19 21:00 12/15/19 20:48 Home Med (Med Rec Complete!) ASDIRECTED XX 12/13/19 23:45 12/13/19 23:45 DC Ibuprofen (Advil) 400 mg Q6HP PRN PO PAIN 12/14/19 15:30 Magnesium Hydroxide (Milk Of Magnesia) 30 ml DAILYPRN PRN PO CONSTIPATION 12/14/19 15:30 Olanzapine (ZyPREXA ZYDIS) 5 mg Q4HP PRN PO AGITATION 12/14/19 15:30 Trazodone HCl (Desyrel) 50 mg QHSP PRN PO INSOMNIA 12/14/19 15:30 12/15/19 20:47 Allergies Coded Allergies: No Known Allergies (Unverified , 11/18/18) MARQUES GASCA NP Dec 16, 2019 11:09
[2019-12-16] MEDS ORDERED: ARIP1TAB6 PO (11:12)
[2019-12-16] MEDS ORDERED: ESCI10TA2 PO (11:12)
[2019-12-16 18:00] VITALS: BP 143/65
[2019-12-16] MEDS: traZODone 50 MG TAB PO PRN (20:26)
[2019-12-16] MEDS: ESCITALOPRAM OXALATE 10 MG TAB (LEXAPRO) PO SCH (20:27)
[2019-12-17 06:12] VITALS: BP 144/58
--- NOTE | 2019-12-17 12:09 | MHDSPDOC ---
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 Patient states on Halloween night he was in a "dark Place" and didn't think that anyone care about him. He decided to hang himself, reporting that he had not supports. States he took an extension cord and wrapped around his neck and went into a closet, but stopped because it was hurting. Had an overdose in April 2019 and has had at least 3-4 psychiatric admissions. He is being med boarded [facility] [employer] and is not looking forward to going home. CONSULTANTS INVOLVED: see Medical H + P by Medical Provider TREATMENT AND PROGRESS ON THE UNIT : Patient was admitted to the [facility] on a 9.39 legal status he was afforded the following treatment modalities: 1) Individual Therapy 2) Group Therapy 3) Medication Management 4) Milieu Therapy 5) Safe Environment HOSPITAL COURSE: Patient admitted to [facility] on a 9.39 legal status and had Lexapro increased to 20 mg and Abilify was continued. Patient was agreeable to daily individual sessions where we had talekd about his negative thinking, poor self esteem and constant thoughts that he needs to life up to other's potential. He reports that he often has a negative self worth. He was agreeable to journaling about negative thinking and this helped him tremendously. DISCHARGE ASSESSMENT: Patient was smiling upon approach, stated that he felt much better and was denying suicidal ideation. He presented with no other abnormal psychiatric symptoms. He reported that his depression was mild. During this admission, he declined [facility] being offered by [facility] [employer] stating that he would rather return home. 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 Reports that he is feeling better today, states that he feels that Lexapro is helping. He is dressed appropriately, calm, cooperative and pleasant in the interview. Eye contact is good. Smiles on approach and is not observed with psychomotor agitation or retardation. Speech: Is fluid and conversant, normal rate, tone and volume. Language skills are good. Thought processes including: reality-based, linear and goal oriented. Thought content: Reports mild depression with no suicidal ideation, planning or intent Description of abnormal or psychotic thoughts: not observed, patient denies Judgment: good Insight: good Orientation: Alert and oriented to person, place, time and situation Recent and remote memory: intact Attention span and concentration: good Language: expansive Fund of knowledge: average Mood: mildly depressed, but "stable" Affect: congruent with mood MEDICATIONS ON DISCHARGE: Lexapro 20 mg Daily Abilift 5 mg Daily PLAN/FOLLOWUP ARRANGEMENTS: [facility] The amount of time spent in the coordination of care for this patient was approximately 20 minutes. Vital Signs/I&Os Vital Signs Date Time Temp Pulse Resp B/P (MAP) Pulse Ox O2 Delivery O2 Flow Rate FiO2 12/17/19 06:12 97.3 64 18 144/58 (86) 12/16/19 06:58 100 Room Air Medications Scheduled Aripiprazole (Aripiprazole) 5 Mg Tablet, 5 MG PO DAILY for Depression Adjunct, #7 Escitalopram Oxalate (Escitalopram Oxalate) 10 Mg Tablet, 20 MG PO QHS for depression, #14 Allergies Coded Allergies: No Known Allergies (Unverified , 11/18/18) MARQUES GASCA NP Dec 17, 2019 12:04
[2019-12-18] MEDS ORDERED: ARIP1TAB6 PO (23:53)
[2019-12-18] MEDS ORDERED: ESCI10TA2 PO (23:54)
== END 2019-12-17 08:45 | disposition home or self-care (01) | DRG 885 ==
LOC: M ED 21:43 → M ED INP 12-14 15:18 → M PSY 12-14 17:28
PROVIDERS: ADMIT Psychiatry & Neurology Addiction Medicine; ATTEND Psychiatry & Neurology Psychiatry
DX: F33.2 Major depressive disorder, recurrent severe without psychotic features (principal); F43.25 Adjustment disorder with mixed disturbance of emotions and conduct; Z79.899 Other long term (current) drug therapy; Z91.5 Personal history of self-harm; E66.9 Obesity, unspecified; Z68.37 Body mass index [BMI] 37.0-37.9, adult

== ENCOUNTER 2019-12-18 20:40 | Emergency (ER) | payer OTHER ==
[~2019-12-18] VITALS: Ht 170.2 cm; Wt 122.5 kg
[~2019-12-18 20:40] MED LIST changes: +ARIP1TAB6 PO; +ESCI10TA2 PO
[2019-12-18 21:32] LABS: HEMATOCRIT 44.9 % (42.0-52.0); HEMOGLOBIN 15.1 g/dl (13.5-17.5); MEAN CORPUSCULAR HEMOGLOBIN 30.9 pg (27.0-33.0); MEAN CORPUSCULAR HGB CONC 33.6 g/dl (32.0-36.5); PLATELET COUNT, AUTOMATED 220 10^3/uL (150-450); RED BLOOD COUNT 4.88 10^6/uL (4.30-6.10); WHITE BLOOD COUNT 6.6 10^3/uL (4.0-10.0)
[2019-12-18 22:07] LABS: ACETAMINOPHEN LEVEL < 2.0 UG/ML (10.0-30.0); ALBUMIN 3.8 GM/DL (3.2-5.2); ALT/SGPT 39 U/L (12-78); BILIRUBIN,DIRECT 0.2 MG/DL (0.0-0.2); BILIRUBIN,TOTAL 0.5 MG/DL (0.2-1.0); BLOOD UREA NITROGEN 16 MG/DL (7-18); CARBON DIOXIDE LEVEL 30 MEQ/L (21-32); CHLORIDE LEVEL 107 MEQ/L (98-107); CREATININE FOR GFR 1.11 MG/DL (0.70-1.30); ETHYL ALCOHOL (ETHANOL) < 0.003 % (0.000-0.010); GLOMERULAR FILTRATION RATE > 60.0 (>60); GLUCOSE, FASTING 91 MG/DL (70-100); SALICYLATE LEVEL < 1.7 MG/DL (5.0-30.0); SODIUM LEVEL 141 MEQ/L (136-145); TOTAL PROTEIN 7.4 GM/DL (6.4-8.2)
[2019-12-18 22:09] LABS: AMPHETAMINES LEVEL URINE NEGATIVE (NEGATIVE); BARBITURATES URINE NEGATIVE (NEGATIVE); BENZODIAZEPINES URINE NEGATIVE (NEGATIVE); CANNABINOIDS URINE NEGATIVE (NEGATIVE); COCAINE METABOLITE URINE NEGATIVE (NEGATIVE); METHADONE URINE NEGATIVE (NEGATIVE); OPIATES URINE NEGATIVE (NEGATIVE); PHENCYCLIDINE URINE NEGATIVE (NEGATIVE)
[2019-12-18] MEDS ORDERED: ARIP1TAB6 PO (23:53)
[2019-12-18] MEDS ORDERED: ESCI10TA2 PO (23:54)
[2019-12-19] MEDS ORDERED: ALPRAZolam 0.25 MG TAB PO ONE (01:00)
[2019-12-19] MEDS ORDERED: METAL LOCK LOOP XX ONE (03:45)
[2019-12-19 08:30] VITALS: BP 131/78
--- NOTE | 2019-12-19 17:01 | ECGEPIP ---
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
== END 2019-12-19 08:33 ==
LOC: M ED 20:40
DX: F33.9 Major depressive disorder, recurrent, unspecified (principal); Z91.5 Personal history of self-harm; Z79.899 Other long term (current) drug therapy
CPT/HCPCS: 36415; 80048; 80076; 80307; 81001; 84443; 85027; 93005; 99285; G0480